=== PATIENT | female | born 1970 | race Caucasian/White ===

== ENCOUNTER → 2020-11-10 | Outpatient (CLI) | payer OTHER ==
[~2020-11-10] MED LIST: IBUPROFEN 200200 M1 PO; VICODIN PO
--- NOTE | 2020-11-19 20:25 | PFR/MVV ---
[facility] [place] [address] PULMONARY FUNCTION MVV/REPORT Name: CRISTHIAN SIERRA Room #: REG [facility]#: [id number] Admission: 11/10/20 Attend Phys: Nick Shen MD Discharge: Date of : 70 Report #: [id number] THIS REPORT FOR: //name// >> SPIROMETRY: (BTPS) Height: 62 in cm Weight: 134 lbs kg Exam Date: 11/10/20 PRE-RX POST-RX PRED BEST %PRED BEST %PRED %CHG FVC LITERS . 3.08 . 1.80 . 59 . 1.68 . 55 . -7 FEV1 LITERS . 2.34 . 1.74 . 74 . 1.58 . 68 . -9 FEV1/FVC % . 75 . 96 . 128 . 94 . 125 . -2 ZTZ53-24% L/Sec . 2.77 . 2.32 . 84 . 1.43 . 88 . 5 PEF L/SEC . 3.40 . 2.65 . 78 . 2.89 . 85 . 9 FEF50/FIF50 UNITLESS . 5.73 . 4.65 . 81 . 2.52 . 61 . -24 MVV L/Min . 100 . 93 . 93 f 1/Min . . . >> LUNG VOLUMES: (BTPS) PRE-RX POST-RX PRED AVG %PRED AVG %PRED %CHG VC Liters . 3.08 . 15.00 . 487 . . . TLC Liters . 4.57 . 17.03 . 372 . . . RV Liters . 1.59 . 2.03 . 128 . . . RV/TLC % . 35 . 12 . 34 . . . FRC PL Liters . 2.60 . 2.08 . 80 . . . FRC N2 Liters . 2.60 . . . . . ERV Liters . 1.00 . 0.06 . 6 . . . IC Liters . 2.01 . 14.95 . 745 . . . >> DIFFUSION: DLCO ml/Min/mmHg . 19.6 . 2.1 . 11 . . . DL Don ml/Min/mmHg . 19.6 . 2.1 . 11 . . . DLCO/VA ml/Min/mmHg . 4.02 . 1.87 . 47 . . . VA Liters . . 1.10 . . . . COMMENTS: COMMENTS: >> RESISTANCE: [facility] [address] [place] [address] PULMONARY FUNCTION MVV/REPORT Name: CRISTHIAN SIERRA Room #: [facility] Cheko#: [id number] Admission: 11/10/20 Attend Phys: Nick Shen MD Discharge: Date of : 70 Report #: [id number] PRE-RX PRED AVG %PRED Raw Total cmH20/L/Sec . . 1.31 . Raw Insp cmH20/L/Sec . . 0.58 . Raw Exp cmH20/L/Sec . . 1.44 . Raw cmH20/L/Sec . 1.48 . 0.81 . 54 Gaw L/Sec/cmH20 . 0.623 . 1.241 . 199 sRaw cmH20 Sec . 3.85 . 2.35 . 61 sGaw l/cmH20 Sec . 0.260 . 0.426 . 164 Vtq Liters . . 2.91 . # = OUTSIDE 95% CONFIDENCE INTERVAL CALIBRATION: PRED: 3.00 ACTUAL: EXP 3.01 INSP 3.02 [facility]-OL10-06 [facility]-05 N-1804-4 >> INTERPRETATION/IMPRESSION: DOC #: [id number] Charbel Velasquez M.D. DATE OF SERVICE: 11/10/2020 PHYSICIAN: Dr. Luis Matthews DIAGNOSTIC DATA: PFTs. Spirometry: FEV1 is 1.74 liters (74%). FVC is 1.80 liters (59%). FEV1/FVC ratio is 96%. There is no significant response to bronchodilator therapy. LUNG VOLUMES: Total lung capacity is 17.03 liters (372%). RV is 2.03 liters (128%); vital capacity is 15 liters (487%). IC is 14.95 liters. ERV is 0.06 liters. DIFFUSION: Diffusing capacity is 11. IMPRESSION: Pulmonary function studies are consistent with a moderate restrictive airflow defect with no significant response to bronchodilator therapy. Total lung capacity and residual volume are increased suggesting air trapping and hyperinflation. Diffusing capacity is severely decreased. Overall impression appears to be a mixed obstructive and restrictive airflow process. Please correlate clinically. Charbel Velasquez M.D. [facility] [address] [place] [address] PULMONARY FUNCTION MVV/REPORT Name: CRISTHIAN SIERRA Room #: [facility] Cheko#: [id number] Admission: 11/10/20 Attend Phys: Nick Shen MD Discharge: Date of : 70 Report #: [id number] WILLIE/JAMARI <ELECTRONICALLY SIGNED> By: Charbel Velasquez MD 11/19/202024 Charbel Velasquez MD /nt
== END ==
LOC: PUL 10:11
PROVIDERS: ATTEND Internal Medicine Pulmonary Disease
DX: J84.9 Interstitial pulmonary disease, unspecified (principal); Z86.16 Personal history of COVID-19

== ENCOUNTER → 2021-05-24 | Outpatient (CLI) | payer OTHER | LOC: LAB 11:43 | PROVIDERS: ATTEND Student in an Organized Health Care Education/Training Program | DX: Z01.812 Encounter for preprocedural laboratory examination (principal); Z20.822 Contact with and (suspected) exposure to COVID-19 ==

== ENCOUNTER → 2021-05-26 | Outpatient (CLI) | payer OTHER ==
--- NOTE | 2021-05-30 17:06 | PATH ---
[facility] [address] [place] [address] PATHOLOGY RPT PROCEDURE Name: CRISTHIAN SIERRA Tyson Room #: REG [facility] Kalyan.#: [id number] Admission: 05/26/21 Date of : 70 Discharge: Report #: [id number] Path Case #: [id number] [facility] Accession Number: [id number] . 01 Material submitted: . cecum - CECAL POLYP . 01 Clinical history: . COLONOSCOPY SCREENING COLON CA COLON POLYP . 02 Diagnosis: Colonic mucosa (cecal polyp): - Hyperplastic polyp. LBQ 05/30/2021 1513 Local . 02 Comment: We find no evidence of high grade dysplasia or of malignancy. (SWK/db; 05/30/2021) . 02 Electronically signed: . Chavo Velazquez MD, Pathologist NPI- [id number] . 01 Gross description: . The specimen is received in formalin, labeled "Cristhian Sierra, cecal polyp". Received are 4 segments of pale menchaca tissue ranging in size from 0.3 to 0.4 cm in maximum dimensions. The specimen is submitted entirely in cassette A1.([facility] [place]; 05/29/2021) [facility] 05/29/2021 1026 Local . 02 Pathologist provided ICD-10: K63.5 . 02 CPT . 597133 Specimen Comment: A courtesy copy of this report has been sent to [phone] Specimen Comment: [phone] Specimen Comment: Report sent to / DR DIAMOND Performed at: [address] [id number] MD Mack Rosario MD Phone: [phone] Performed at: 02 [place] [address] PATHOLOGY RPT PROCEDURE Name: CRISTHIAN SIERRA Room #: REG [facility]#: [id number] Admission: 05/26/21 Date of : 70 Discharge: Report #: [id number] Path Case #: [id number] [address] [id number] MD Chavo Velazquez MD Phone: [phone]
--- NOTE | 2021-05-31 09:38 | P ---
[facility] [place] [address] PROCEDURE REPORT Name: CRISTHIAN SIERRA Room #: REG [facility] Cheko#: [id number] Admission: 05/26/21 Attend Phys: Vasu Nielsen Discharge: Date of : 70 Report #: [id number] THIS REPORT FOR: cc: Lorna Pabon MD,Vasu Cerda MD, MD ~ cc: Dr. Lorna Pabon DATE OF SERVICE: 05/26/2021 PROCEDURE PERFORMED: Colonoscopy with biopsies. HISTORY OF PRESENT ILLNESS: The patient is a 51-year-old female who presents today for a routine screening colonoscopy. She denies any symptoms. No family history of colon cancer. DESCRIPTION OF PROCEDURE: The risks and benefits of the procedure were explained to the patient, those risks including but not limited to bleeding, perforation and the risk of sedation. She understood these risks and gave me informed consent. Sedation was given using propofol per anesthesia. Next, a digital rectal exam was initially performed, which was normal. Next, using a standard Olympus colonoscope, the scope was placed in the patient's anus and advanced under direct vision to the cecum. The overall prep was excellent. In the cecum, a small 3 mm sessile polyp was noted. This was removed with cold forceps, otherwise normal. The ileocecal valve was normal. The ascending, transverse, descending and sigmoid colon were all normal. The rectal mucosa was normal. On retroflexion, no abnormalities were noted. The scope was then withdrawn and the procedure terminated. The patient tolerated the procedure well. IMPRESSION: 1. Small cecal polyp. 2. Otherwise, normal colonoscopy. RECOMMENDATIONS: 1. Await biopsy results. 2. If polyps are hyperplastic, repeat in 10 years. If adenomatous polyp, repeat in 5 years. Thank you for allowing me to participate in her care. <ELECTRONICALLY SIGNED> By: Vasu Lebron MD 05/31/21 0938 1023 20 Vasu Lebron MD /nt
== END ==
LOC: GI
PROVIDERS: ATTEND Specialist
DX: Z12.11 Encounter for screening for malignant neoplasm of colon (principal); K63.5 Polyp of colon; Z79.899 Other long term (current) drug therapy
CPT/HCPCS: 62110; 62900